=== PATIENT | female | born 1960 | race Caucasian/White ===

== ENCOUNTER → 2018-10-13 | Outpatient (CLI) | payer OTHER | LOC: M.RAD 10-07 08:44 | DX: Z12.31 Encounter for screening mammogram for malignant neoplasm of breast (principal); M17.11 Unilateral primary osteoarthritis, right knee; M25.552 Pain in left hip; M25.551 Pain in right hip; G89.29 Other chronic pain; M54.12 Radiculopathy, cervical region; Z88.8 Allergy status to other drugs, medicaments and biological substances ==

== ENCOUNTER → 2018-12-01 | Outpatient (CLI) | payer OTHER ==
[~2018-12-01] MED LIST: ALEVE220 MG PO; ASPIR 8181 MG PO; B12INJ PO; BACTRIM DS TAB1 EACH PO; COREG6.25 MG PO; HUMALOG100 UNIT/2 SUBQ; HYDROCODON-ACE1 EAC7 PO; MELATONIN5 M1 PO; METFORMIN HCL500 MG PO; NEURONTIN 300300 M1 PO; SIMVASTATIN20 MG PO; VITAMIN D1000 UNI1 PO; ZANTAC 150MG T150 M1 PO; ZOFRAN ODT4 MG PO
== END ==
LOC: M.ULTRA 07:30
DX: R10.2 Pelvic and perineal pain (principal); Z90.710 Acquired absence of both cervix and uterus

== ENCOUNTER 2018-12-07 11:18 | Emergency (ER) | payer OTHER ==
[~2018-12-07] VITALS: Ht 167.6 cm; Wt 85.3 kg
[2018-12-07 12:01] LABS: ABSOLUTE EOSINOPHILS 0.1 thou/uL (0.0-0.7); ABSOLUTE LYMPHOCYTES 2.7 thou/uL (0.8-5.3); ABSOLUTE MONOCYTES 0.9 thou/uL (0.0-1.2); ABSOLUTE NEUTROPHILS 6.4 thou/uL (1.6-8.1); BASOPHILS 0.4 %; EOSINOPHILS 1.1 %; HEMATOCRIT 44.4 % (37.0-47.0); HEMOGLOBIN 15.1 gm/dL (12.0-15.0); LYMPHOCYTES 26.9 %; MCH 29.8 pg (26.0-34.0); MCHC 34.1 g/dL (28.0-37.0); MCV 87.6 fL (80.0-100.0); MONOCYTES 8.5 %; MPV 7.8 fl. (7.2-11.1); NUCLEATED RBCS 0 /100WBC; PLATELET COUNT* 320 thou/uL (150-400); POLYS 63.1 %; RBC 5.07 mil/uL (4.20-5.00); RDW-CV 14.1 % (10.5-14.5); WBC 10.1 thou/uL (4.0-11.0)
[2018-12-07 12:06] LABS: CALCIUM 9.5 mg/dL (8.5-10.1); CREATININE 0.9 mg/dL (0.6-1.3); POTASSIUM 4.1 mmol/L (3.5-5.1)
[2018-12-07 12:07] LABS: URINE BILIRUBIN NEGATIVE (Negative); URINE BLOOD NEGATIVE (Negative); URINE CLARITY CLEAR; URINE COLOR YELLOW; URINE GLUCOSE-RANDOM NEGATIVE (Negative); URINE KETONES NEGATIVE (Negative); URINE LEUKOCYTES-REFLEX 1+ (Negative); URINE NITRITE-REFLEX NEGATIVE (Negative); URINE PROTEIN NEGATIVE (Negative); URINE SPECIFIC GRAVITY 1.015 (1.005-1.030)
[2018-12-07 12:10] LABS: ALBUMIN 4.5 g/dL (3.4-5.0); TOTAL BILIRUBIN 0.4 mg/dL (<0.1-1.0); TOTAL PROTEIN 8.4 g/dL (6.4-8.2)
[2018-12-07] MEDS ORDERED: ASPIR 8181 MG PO (12:11)
[2018-12-07] MEDS ORDERED: B12INJ PO (12:12)
[2018-12-07] MEDS ORDERED: COREG6.25 MG PO (12:12)
[2018-12-07] MEDS ORDERED: VITAMIN D1000 UNI1 PO (12:12)
[2018-12-07] MEDS ORDERED: NEURONTIN 300300 M1 PO (12:13)
[2018-12-07] MEDS ORDERED: ALEVE220 MG PO (12:14)
[2018-12-07] MEDS ORDERED: MELATONIN5 M1 PO (12:14)
[2018-12-07] MEDS ORDERED: METFORMIN HCL500 MG PO (12:14)
[2018-12-07] MEDS ORDERED: HUMALOG100 UNIT/2 SUBQ (12:14)
[2018-12-07] MEDS ORDERED: SIMVASTATIN20 MG PO (12:15)
[2018-12-07 12:19] LABS: SQUAMOUS >10 Many /LPF (0-3)
[2018-12-07 12:20] LABS: CASTS None Seen /LPF (None Seen); CRYSTALS None Seen /LPF (None Seen); MUCUS 4-6 Moderate strn/LPF (None Seen); URINE RBC 0-2 Rare /HPF (0-2); URINE WBC-REFLEX 0-5 Rare /HPF (0-5)
[2018-12-07] MEDS ORDERED: ZOFRAN ODT4 MG PO (14:40)
[2018-12-07] MEDS ORDERED: BACTRIM DS TAB1 EACH PO (14:40)
[2018-12-07 14:57] VITALS: BP 178/106
== END 2018-12-07 14:58 | disposition home or self-care (01) ==
LOC: M.ERS 11:18
PROVIDERS: Nurse Practitioner Family
DX: K80.20 Calculus of gallbladder without cholecystitis without obstruction (principal); N39.0 Urinary tract infection, site not specified; R11.2 Nausea with vomiting, unspecified; I12.9 Hypertensive chronic kidney disease with stage 1 through stage 4 chronic kidney disease, or unspecified chronic kidney disease; N18.9 Chronic kidney disease, unspecified; E11.22 Type 2 diabetes mellitus with diabetic chronic kidney disease; E11.40 Type 2 diabetes mellitus with diabetic neuropathy, unspecified; E78.00 Pure hypercholesterolemia, unspecified; M79.7 Fibromyalgia; J45.909 Unspecified asthma, uncomplicated; E78.5 Hyperlipidemia, unspecified; Z86.2 Personal history of diseases of the blood and blood-forming organs and certain disorders involving the immune mechanism; Z88.1 Allergy status to other antibiotic agents; Z88.8 Allergy status to other drugs, medicaments and biological substances

== ENCOUNTER 2018-12-09 07:04 | Emergency (ER) | payer OTHER ==
[~2018-12-09] VITALS: Ht 167.6 cm; Wt 85.3 kg
[~2018-12-09 07:04] MED LIST changes: -HYDROCODON-ACE1 EAC7 PO; -ZANTAC 150MG T150 M1 PO
[2018-12-09] MEDS ORDERED: ZANTAC 150MG T150 M1 PO (07:20)
[2018-12-09 07:35] LABS: URINE BILIRUBIN NEGATIVE (Negative); URINE BLOOD NEGATIVE (Negative); URINE CLARITY CLEAR; URINE COLOR YELLOW; URINE GLUCOSE-RANDOM NEGATIVE (Negative); URINE KETONES NEGATIVE (Negative); URINE LEUKOCYTES-REFLEX TRACE (Negative); URINE NITRITE-REFLEX NEGATIVE (Negative); URINE PROTEIN NEGATIVE (Negative); URINE SPECIFIC GRAVITY 1.015 (1.005-1.030); URINE UROBILINOGEN 0.2 E.U./dl (0.2-1.0)
[2018-12-09 07:40] LABS: ABSOLUTE EOSINOPHILS 0.1 thou/uL (0.0-0.7); ABSOLUTE LYMPHOCYTES 2.9 thou/uL (0.8-5.3); ABSOLUTE MONOCYTES 0.8 thou/uL (0.0-1.2); ABSOLUTE NEUTROPHILS 6.5 thou/uL (1.6-8.1); BASOPHILS 0.4 %; EOSINOPHILS 1.4 %; HEMATOCRIT 42.4 % (37.0-47.0); HEMOGLOBIN 14.3 gm/dL (12.0-15.0); LYMPHOCYTES 27.8 %; MCH 29.6 pg (26.0-34.0); MCHC 33.7 g/dL (28.0-37.0); MCV 87.9 fL (80.0-100.0); MONOCYTES 8.1 %; MPV 7.9 fl. (7.2-11.1); NUCLEATED RBCS 0 /100WBC; PLATELET COUNT* 297 thou/uL (150-400); POLYS 62.3 %; RBC 4.83 mil/uL (4.20-5.00); RDW-CV 14.2 % (10.5-14.5); WBC 10.4 thou/uL (4.0-11.0)
[2018-12-09 07:41] LABS: ANION GAP 11 mmol/L (7-16); BUN 12 mg/dL (7-18); CALCIUM 9.3 mg/dL (8.5-10.1); CHLORIDE 97 mmol/L (98-107); CO2 28 mmol/L (21-32); CREATININE 1.2 mg/dL (0.6-1.3); GLUCOSE 174 mg/dL (70-99); SODIUM 136 mmol/L (136-145)
[2018-12-09 07:45] LABS: BACTERIA-REFLEX 1-9 Few /HPF (None Seen); CASTS None Seen /LPF (None Seen); MUCUS 0-3 Light strn/LPF (None Seen); SQUAMOUS 4-10 Moderate /LPF (0-3); URINE RBC 0-2 Rare /HPF (0-2); URINE WBC-REFLEX 6-15 Few /HPF (0-5)
[2018-12-09 07:46] LABS: CRYSTALS None Seen /LPF (None Seen)
[2018-12-09 07:54] LABS: ALBUMIN 4.3 g/dL (3.4-5.0); ALKALINE PHOSPHATASE 65 U/L (46-116); LIPASE 67 U/L (73-393); SGOT 12 U/L (15-37); SGPT 21 U/L (30-65); TOTAL BILIRUBIN 0.4 mg/dL (<0.1-1.0); TROPONIN-I LEVEL <0.06 ng/mL (<0.06)
[2018-12-09] MEDS ORDERED: HYDROCODON-ACE1 EAC7 PO (08:55)
[2018-12-09 09:06] VITALS: BP 184/97
--- NOTE | 2018-12-09 11:10 | EKG ---
[place] [address] ELECTROCARDIOGRAM REPORT Name: JUDE FITZPATRICK Room: [facility]#: [id number] Admission: 12/09/18 Attend Phys: Discharge: 12/09/18 Date of : 62 Report #: [id number] THIS REPORT FOR: //name// [facility] ED Test Date: 2018-12-09 Test Time: 07:45:55 Pat Name: JUDE FITZPATRICK Department: Room: Gender: F [employer]: : 1960 Requested By: Nikhil Palacios Order Number: [id number] MD: Ciaran Santoyo Measurements Intervals [place] Rate: 88 P: 43 PA: 156 QRS: 6 QRSD: 90 T: 36 QT: 368 QTc: 446 Interpretive Statements Sinus rhythm Borderline low voltage, extremity leads Baseline wander in lead(s) II,III,aVF No previous ECG available for comparison Electronically Signed On 12-09-2018 11:10:18 CDT by Ciaran Santoyo [email or web address] <ELECTRONICALLY SIGNED> By: Ciaran Santoyo MD, [facility] 12/09/18 1110 Ciaran Santoyo MD, [facility] /EPI
== END 2018-12-09 09:07 | disposition home or self-care (01) ==
LOC: M.ERS 07:04
PROVIDERS: Emergency Medicine
DX: K80.20 Calculus of gallbladder without cholecystitis without obstruction (principal); R11.10 Vomiting, unspecified; M79.7 Fibromyalgia; E11.40 Type 2 diabetes mellitus with diabetic neuropathy, unspecified; E78.00 Pure hypercholesterolemia, unspecified; E78.5 Hyperlipidemia, unspecified; I12.9 Hypertensive chronic kidney disease with stage 1 through stage 4 chronic kidney disease, or unspecified chronic kidney disease; E11.22 Type 2 diabetes mellitus with diabetic chronic kidney disease; N18.9 Chronic kidney disease, unspecified; Z88.8 Allergy status to other drugs, medicaments and biological substances; Z79.4 Long term (current) use of insulin

== ENCOUNTER → 2019-03-23 | Outpatient (CLI) | payer OTHER ==
[~2019-03-23] MED LIST changes: +HYDROCODON-ACE1 EAC7 PO; +ZANTAC 150MG T150 M1 PO
== END ==
LOC: M.MRI 15:26
DX: M47.817 Spondylosis without myelopathy or radiculopathy, lumbosacral region (principal); M48.07 Spinal stenosis, lumbosacral region; M51.26 Other intervertebral disc displacement, lumbar region; M47.816 Spondylosis without myelopathy or radiculopathy, lumbar region; M50.122 Cervical disc disorder at C5-C6 level with radiculopathy; M25.78 Osteophyte, vertebrae

== ENCOUNTER → 2019-04-30 | Outpatient (CLI) | payer OTHER | LOC: M.MRI 07:10 | DX: M17.11 Unilateral primary osteoarthritis, right knee (principal); M25.361 Other instability, right knee; M87.9 Osteonecrosis, unspecified; M25.461 Effusion, right knee ==

== ENCOUNTER → 2019-05-27 | Outpatient (CLI) | payer OTHER ==
[~2019-05-27] MED LIST changes: +NEURONTIN300 MG PO; +PROBIOTIC1 EAC7 PO; +TYLENOL; +TYLENOL EXTRA500 MG PO; +WELLBUTRIN 75 M75 M1 PO
== END ==
LOC: M.PC 03:39
DX: S83.411A Sprain of medial collateral ligament of right knee, initial encounter (principal); M51.06 Intervertebral disc disorders with myelopathy, lumbar region; M51.16 Intervertebral disc disorders with radiculopathy, lumbar region; M47.26 Other spondylosis with radiculopathy, lumbar region; M17.11 Unilateral primary osteoarthritis, right knee; X58.XXXA Exposure to other specified factors, initial encounter; Y93.89 Activity, other specified; Y92.89 Other specified places as the place of occurrence of the external cause; Y99.8 Other external cause status